=== PATIENT | female | born 1955 | race Caucasian/White ===

== ENCOUNTER → 2020-11-25 | Day surgery (SDC) | payer MEDICARE, OTHER ==
[~2020-11-25] MED LIST: BUPRENORPHIN-N1 EACH SL; CALCIUM500 MG PO; HYDROXYCHLOROQ200 MG PO; LISINOPRIL10 MG PO; LOPRESSOR 25 MG25 MG PO; NEXIUM20 MG PO; VITAMIN C100 MG PO; VITAMIN D350 MCG PO; WELLBUTRIN SR150 M1 PO
== END | disposition home or self-care (01) ==
LOC: OR 07:45
DX: K29.51 Unspecified chronic gastritis with bleeding (principal); K64.0 First degree hemorrhoids; K62.89 Other specified diseases of anus and rectum; I10 Essential (primary) hypertension; M06.9 Rheumatoid arthritis, unspecified; M35.00 Sjogren syndrome, unspecified
CPT/HCPCS: J1100; J2405; J2704; J7040; J7120